=== PATIENT | male | born 1960 | race African-American/Black ===

== ENCOUNTER 2017-01-21 15:14 | Emergency (ER) | payer OTHER ==
[~2017-01-21] VITALS: Ht 175.3 cm; Wt 91.3 kg
[2017-01-21 15:39] LABS: HEMATOCRIT 42.1 % (38.0-50.0); MCH 32.4 PG (29.0-34.0); MCHC 33.5 G/DL (30.0-36.0); MCV 96.8 FL (86-99); MEAN PLAT.VOLUME 9.1 uM^3 (9.0-12.4); PLATELET COUNT 267 K/uL (156-360); RBC DIS.WIDTH-CV 11.6 % (11.8-14.6); RBC DIS.WIDTH-SD 41.2 % (39-53); RED BLOOD COUNT 4.35 M/uL (4.00-5.50); WHITE BLOOD COUNT 8.5 K/uL (4.1-10.2)
[2017-01-21 15:49] LABS: CHLORIDE 107 mEq/L (99-109); POTASSIUM 4.1 mEq/L (3.7-5.4); SODIUM 143 mEq/L (136-147)
[2017-01-21 15:50] LABS: GLUCOSE 125 mg/dL (70-99)
[2017-01-21 15:52] LABS: ANION GAP 14 MEQ/L (2-14)
[2017-01-21 15:55] LABS: UREA NITROGEN (BUN) 13 mg/dL (9-23)
[2017-01-21 16:01] LABS: TROP-I INTERPRETATION NEGATIVE; TROPONIN-I < 0.01 ng/mL (0.0-0.30)
[2017-01-21 16:08] LABS: GFR ESTIMATE (CALCULATED) > 59 mL/min/
[2017-01-21 17:04] LABS: INTER. NORMALIZED RATIO 1.2; PROTHROMBIN TIME 12.8 SEC (10.2-12.9)
[2017-01-21 17:07] LABS: PTT 24.1 SEC (25-37)
[2017-01-21 17:09] LABS: TOTAL BILIRUBIN 0.7 mg/dL (0.0-1.0)
[2017-01-21 17:10] LABS: ALKALINE PHOSPHATASE 86 IU/L (3-129)
[2017-01-21 17:12] LABS: DIRECT BILIRUBIN 0.3 mg/dL (0.0-0.3)
[2017-01-21 17:13] LABS: LIPASE 9 U/L (1.0-51.0)
[2017-01-21 18:27] LABS: ADD MIUA? NO; BILIRUBIN NEGATIVE; BLOOD NEGATIVE; COLOR YELLOW ((YELLOW)); GLUCOSE (STRIP) NEGATIVE; KETONES 5; LEUKOCYTES NEGATIVE; NITRITE NEGATIVE; PROTEIN (STRIP) NEGATIVE; SPECIFIC GRAVITY 1.026 (1.000-1.030); UROBILINOGEN 0.2 MG/DL (0.2-1.0)
[2017-01-21 18:44] LABS: UCUL ADDED? NO
[2017-01-21 19:49] VITALS: BP 94/53
== END 2017-01-21 19:51 | disposition home or self-care (01) ==
LOC: EME 15:14
PROVIDERS: Emergency Medicine
DX: H81.10 Benign paroxysmal vertigo, unspecified ear (principal)
CPT/HCPCS: 71020; 80048; 80076; 81003; 83605; 83690; 84484; 85027; 85610; 85730; 93005; 99281; 99285; J1200; J2765; J7030